=== PATIENT | female | born 1955 | race African-American/Black ===

== ENCOUNTER → 2016-06-10 | Outpatient (CLI) | payer OTHER ==
[~2016-06-10] MED LIST: HYDROCHLOROTHIA25 M2 PO; MOBIC15 MG PO; NAPROSYN500 MG PO; NORCO 10-325 T1 EACH PO; NORCO 5-325 TA1 EACH PO; ULTRAM 50MG TAB50 MG PO
== END ==
LOC: RAD 07:52
DX: Z12.31 Encounter for screening mammogram for malignant neoplasm of breast (principal)

== ENCOUNTER → 2018-01-15 | Outpatient (CLI) | payer OTHER | LOC: RAD 15:05 | DX: Z12.31 Encounter for screening mammogram for malignant neoplasm of breast (principal) ==

== ENCOUNTER → 2019-01-21 | Outpatient (CLI) | payer OTHER | LOC: RAD 10:34 | DX: Z12.31 Encounter for screening mammogram for malignant neoplasm of breast (principal) ==